=== PATIENT | female | born 1960 | race Caucasian/White ===

== ENCOUNTER 2025-04-26 06:30 | Day surgery (SDC) | payer MEDICARE ==
[2025-04-26 06:54] VITALS: RESP 18
[2025-04-26] MEDS ORDERED: XYLOCAINE 1% HCL 20 ML MDV ONE (07:18)
[2025-04-26 08:24] VITALS: BP 145/76; PULSE 65; TEMP 97.2; O2SAT 96
--- NOTE | 2025-04-27 10:55 | OP ---
SURGERY DATE/TIME: 04/26/2025 [id number] PREOPERATIVE DIAGNOSIS: Right trigger thumb. POSTOPERATIVE DIAGNOSIS: Right trigger thumb. PROCEDURE: Release of the A1 rodney, right thumb. SURGEON: Macario Dickey II, ANESTHESIA: Local with 1% Xylocaine plain. DESCRIPTION OF PROCEDURE AND FINDINGS: The patient was identified and informed consent was obtained. The patient was taken to the operative suite and placed in the supine position on the operating table where the right upper extremity was prepped and draped in the usual sterile fashion. Once the arm had been prepped and draped, a standard time-out was taken. The area over the A1 rodney was then infiltrated with 1% Xylocaine plain. A total of about a 1 mL to 1.5 mL of 1% plain was utilized. Once an appropriate level of anesthesia had been obtained, an incision was carried out over the A1 rodney longitudinally. Skin was incised. Dissection was carried out through the subcutaneous tissue. The A1 rodney was easily identified. The neurovascular bundles were noted to be well out of harm's way. The A1 rodney was then released with the Calle tenotomy scissors. The patient was then asked to flex and extend her as she had been asked to do prior to surgery. The thumb had no further evidence of triggering. The wound was then copiously irrigated and closed with interrupted 5-0 nylon suture. Adaptics, 4 x 4s, and a standard postop dressing applied. The patient was transferred to the [facility] and taken to day surgery in satisfactory condition, having tolerated the procedure well.
== END 2025-04-26 08:39 | disposition home or self-care (01) ==
LOC: SDC 06:30
PROVIDERS: ATTEND Orthopaedic Surgery
DX: M65.311 Trigger thumb, right thumb (principal)